=== PATIENT | female | born 1980 | race Caucasian/White ===

== ENCOUNTER → 2017-07-18 | Outpatient (CLI) | payer OTHER ==
[~2017-07-18] MED LIST: ABREVA1 CRE TP; AMOXICILLIN,AM875 MG PO; AMOXIL500 MG PO; BACTRIM DS 8001 TA1 PO; BACTROBAN OINT22 GM PO; CEFANEX500 MG PO; CLARITIN10 MG PO; DELTASONE50 MG PO; IRON FERROUS S325 MG PO; KEFLEX500 MG PO; MOTRIN 800 MG E4 TAB PO; Miralax Powder255 GM PO; PERCOCET 325 MG1 TA2 PO; PRENATAL 1 MG +1 TAB; ZITHROMAX Z PA250 MG PO; ZOFRAN ODT4 MG SL; ZOFRAN ODT8 MG PO; ZOVIRAX 5%15 GM T; Zofran4 MG; Zofran4 MG PO
== END | disposition home or self-care (01) ==
LOC: RAD 12:29
DX: J18.9 Pneumonia, unspecified organism (principal); R04.0 Epistaxis; R07.81 Pleurodynia; R09.89 Other specified symptoms and signs involving the circulatory and respiratory systems

== ENCOUNTER → 2017-10-04 | Outpatient (CLI) | payer OTHER ==
[2017-10-04 14:24] LABS: HEMATOCRIT 35.4 % (37.0-47.0); MEAN CELL VOLUME 92.4 fl (81.0-99.0); MEAN CORPUSCULAR HGB 31.3 pg (27.0-31.0); MEAN CORPUSCULAR HGB CONC 33.9 g/dl (33.0-37.0); MEAN PLATELET VOLUME 12.6 fl (9.6-12.3); RED BLOOD COUNT 3.83 10*6/uL (4.10-5.10); RED CELL DISTRI WIDTH 12.6 % (0-14.5); WHITE BLOOD COUNT 6.7 10*3/uL (4.8-10.8)
[2017-10-04 14:26] LABS: ALKALINE PHOSPHATASE 54 U/L (45-117); BUN 14 mg/dl (7-24); CHLORIDE 110 mmol/L (98-107); CHOLESTEROL 207 mg/dL (<200); CREATININE 0.81 mg/dL (0.55-1.02); HDL CHOLESTEROL 72 mg/dl (40-60); LDL CHOLESTEROL 123 mg/dL (9-159); POTASSIUM 3.8 mmol/L (3.5-5.1); SGOT/AST 13 IU/L (3-35); SGPT/ALT 16 U/L (12-78); SODIUM 142 mmol/L (136-145); TOTAL PROTEIN 7.4 gm/dL (6.4-8.2); TRIGLYCERIDES 58 mg/dl (<150); VLDL CHOLESTEROL 12 mg/dL (6-40)
== END | disposition home or self-care (01) ==
LOC: LAB 13:08
PROVIDERS: Family Medicine
DX: H91.91 Unspecified hearing loss, right ear (principal); R53.83 Other fatigue; R79.89 Other specified abnormal findings of blood chemistry